=== PATIENT | female | born 1985 | race Hispanic/Latino ===

== ENCOUNTER 2018-01-03 20:16 | Emergency (ER) | payer MEDICARE, MEDICAID ==
--- NOTE | 2018-01-03 21:00 | RAD ---
FRONTAL VIEW CHEST: 01/03/18 INDICATION: Chest pain. FINDINGS: There is a patchy opacification at the left lung base. Right lung is clear. The cardiac silhouette is normal in size. No vascular congestion. There is no free air beneath the hemidiaphragms. Osseous str uctures are intact. IMPRESSION: Patchy density at the left lung base which may reflect pneumonia in the correct clinical context. Rec ommend followup with dedicated two view chest to confirm expected resolution. Code T POS: LIAM
== END 2018-01-03 22:05 | disposition home or self-care (01) ==
LOC: ERS 20:16
DX: J18.9 Pneumonia, unspecified organism (principal)
CPT/HCPCS: 71045; 93005

== ENCOUNTER 2018-03-13 12:42 | Emergency (ER) | payer MEDICARE, MEDICAID ==
--- NOTE | 2018-03-13 13:52 | RAD ---
THREE VIEWS RIGHT HAND: Comparison: None. History: Right hand pain. FINDINGS: Three views of the right hand shows no evidence of acute fracture or dislocation. No degenerative mahi nges are seen. No soft tissue swelling is present. IMPRESSION: Unremarkable exam. POS: LIAM
== END 2018-03-13 13:48 | disposition home or self-care (01) ==
LOC: ERS 12:42
DX: M65.4 Radial styloid tenosynovitis [de Quervain] (principal)

== ENCOUNTER 2018-09-18 16:47 | Emergency (ER) | payer MEDICARE, MEDICAID | END 2018-09-18 17:51 | disposition home or self-care (01) | LOC: ERS 16:47 | DX: M62.838 Other muscle spasm (principal) ==

== ENCOUNTER 2019-03-10 12:05 | Emergency (ER) | payer OTHER ==
[2019-03-10] MEDS ORDERED: Iopamidol-370 76% 500 ML 1 ML ONE (12:40)
[2019-03-10] MEDS ORDERED: Ondansetron PF 4 MG/2 ML Vial ONE ×2 (14:30→17:58)
[2019-03-10] MEDS ORDERED: Morphine 4 MG/ML VIAL ONE (14:30)
[2019-03-10 15:04] LABS: #Lymphocytes 1.3 thou/uL (1.20-3.40); #Monocytes 0.4 thou/uL (0.11-0.59); #Neutrophils 12.1 thou/uL (1.40-6.50); %Basophils 0.1 % (0.0-1.0); %Eosinophils 0.1 % (0.0-10.0); %Lymphocytes 9.2 % (21.0-51.0); %Monocytes 2.9 % (0.0-10.0); %Neutrophils 87.7 % (42.0-75.0); Hemoglobin 13.1 g/dL (12.0-16.0); Mean Corpuscular Hemoglobin 30.5 pg (27.0-31.0); Mean Corpuscular Volume 89.5 fL (78.0-98.0); Mean Platelet Volume 6.7 fL (7.4-10.4); Platelet Count 386 thou/uL (130-400); RBC Distribution Width 11.9 % (11.5-14.5); Red Blood Cell (RBC) Count 4.32 mill/uL (4.20-5.40); White Blood Cell (WBC) Count 13.8 thou/uL (4.8-10.8)
[2019-03-10 15:15] LABS: BHCG - Serum Negative (NEGATIVE); Pregs Control Background? CLEAR/WHITE (CLR/WHITE); Pregs Control Bar Appear? YES (CONTROL BAR)
--- NOTE | 2019-03-10 15:20 | ULT ---
US Gallbladder RUQ: 03/10/2019 2:04 PM CLINICAL HISTORY: Right upper quadrant abdominal pain. STUDY: Limited right upper quadrant ultrasound of abdomen. COMPARISON: None. FINDINGS: Liver: Size: Normal. Echogenicity: Normal. Contour: Smooth. Mass: None. Bile ducts: No intrahepatic or extrahepatic biliary dilatation. Common bile duct measures 4 mm. Gallbladder: Normal. Pancreas: Head and body appear normal; tail obscured by bowel gas. Right kidney: Not visualized IMPRESSION: Unremarkable exam.
[2019-03-10 15:26] LABS: ALT (SGPT) 17 U/L (8-55); AST (SGOT) 19 U/L (5-34); Albumin 4.5 g/dL (3.5-5.0); Alkaline Phosphatase 89 U/L (40-110); Anion Gap 16 mmol/L (10-20); BUN (Urea Nitrogen) 10 mg/dL (7.0-18.7); Bilirubin, Total 0.4 mg/dL (0.2-1.2); Calc. Creatinine Clearance 0 mL/min (70-130); Calcium 9.5 mg/dL (7.8-10.44); Carbon Dioxide 20 mmol/L (22-29); Chloride 105 mmol/L (98-107); Estimated GFR-MDRD 86; Globulin 3.3 g/dL (2.4-3.5); Glucose 131 mg/dL (70-105); Lipase 16 U/L (8-78); Protein, Total 7.8 g/dL (6.0-8.3); Sodium 137 mmol/L (136-145)
[2019-03-10 16:23] LABS: Bacteria/HPF 2+ HPF (None Seen); Bilirubin Negative (Negative); Blood, Urine 3+ (Negative); Clarity Turbid (Clear); Glucose, Urine (Dipstick) Normal (Negative); Leukocyte Negative Leu/uL (Negative); Nitrite Negative (Negative); Protein, Urine (Dipstick) 50 mg/dL (Neg-Trace); RBC/HPF Greater than 50 HPF (0-3); Urobilinogen Normal mg/dL (Less than 2)
--- NOTE | 2019-03-10 16:41 | CT ---
CT abdomen and pelvis with IV contrast HISTORY: Right lower quadrant pain. FINDINGS: Compared to 10/10/2013. Lung bases are clear. Ectopic right kidney lying within the center upper pelvis is again demonstrated . There is mild distention of the right ureter to the level of a 0.2 cm calculus in the distal ureter, just above the level of the ureterovesicular junction. A 0.2 cm calculus is also present with in a calyx of the right kidney. Left kidney has normal appearance without evidence of obstruction. Appendix is not inflamed. No evidence of bowel obstruction. Urinary bladder is decompressed. Arcuate appearance of the uterus is apparent. IMPRESSION: Partial obstruction at a 2 mm distal right ureteral calculus. Ectopic right kidney is aga in demonstrated. Nonobstructing tiny right renal calculus.
[2019-03-10] MEDS ORDERED: Ketorolac Tromethamine 30 MG/ML VIAL ONE (18:46)
[2019-03-10 18:57] LABS: Bacteria/HPF None Seen HPF (None Seen); Bilirubin Negative (Negative); Blood, Urine 2+ (Negative); Clarity Clear (Clear); Glucose, Urine (Dipstick) Normal (Negative); Leukocyte Negative Leu/uL (Negative); Nitrite Negative (Negative); Protein, Urine (Dipstick) 20 mg/dL (Neg-Trace); Squamous Epithelial 0-3 HPF (0-3); Urobilinogen Normal mg/dL (Less than 2)
[2019-03-10 19:09] LABS: Calcium Oxalate Crystals 1+ HPF (None Seen); Yeast-Budding 1+ HPF (None Seen)
== END 2019-03-10 19:50 | disposition home or self-care (01) ==
LOC: ERS 12:05
DX: N20.0 Calculus of kidney (principal)
CPT/HCPCS: 51701; 74177; 76705; 80053; 81003; 81015; 83690; 84703; 85025; 93005; 96361; 96374; 96375; 96376; J1885; J2270; J2405; Q9967